=== PATIENT | male | born 1975 | race Caucasian/White ===

== ENCOUNTER 2022-11-27 10:52 | Emergency (ER) | payer OTHER ==
[~2022-11-27] VITALS: Ht 180.3 cm; Wt 104.3 kg
--- NOTE | 2022-11-27 11:05 | NUR ---
Patient [id number] able to express his concerns. Patient states no pain, other than some discomfort on head. Discussed plan of care, patient verbalized agreement.
--- NOTE | 2022-11-27 11:18 | NUR ---
at bedside discussing plan of care with pt. Son also at bedside.
[2022-11-27 11:47] VITALS: BP 132/96
== END 2022-11-27 11:47 | disposition home or self-care (01) ==
LOC: ER 11:00
DX: S01.01XA Laceration without foreign body of scalp, initial encounter (principal); W20.8XXA Other cause of strike by thrown, projected or falling object, initial encounter; Y93.89 Activity, other specified; Y92.89 Other specified places as the place of occurrence of the external cause; Y99.8 Other external cause status
CPT/HCPCS: 99282; 12001; A6403